=== PATIENT | female | born 1955 | race Hispanic/Latino ===

== ENCOUNTER → 2022-04-01 | Outpatient (CLI) | payer OTHER | END | disposition home or self-care (01) | LOC: RAH 08:49 | PROVIDERS: ATTEND Surgery | DX: K44.9 Diaphragmatic hernia without obstruction or gangrene (principal); K42.9 Umbilical hernia without obstruction or gangrene; R10.9 Unspecified abdominal pain; M47.815 Spondylosis without myelopathy or radiculopathy, thoracolumbar region; Z90.49 Acquired absence of other specified parts of digestive tract | CPT/HCPCS: 74150 ==

== ENCOUNTER 2022-06-22 07:26 | Day surgery (SDC) | payer OTHER ==
[2022-06-18 09:41] VITALS: BP 175/75
[2022-06-18 09:45] LABS: BASOPHILS % (AUTO) 0.6 % (0.0-5.0); EOSINOPHILS % (AUTO) 3.1 % (0.0-8.0); HEMATOCRIT 40.1 % (36-48); LYMPHOCYTES % (AUTO) 31.9 % (21.0-51.0); MEAN CORPUSCULAR HEMOGLOBIN 29.3 pg (27.0-33.0); MEAN CORPUSCULAR HGB CONC 32.4 g/dL (32.0-36.0); MEAN CORPUSCULAR VOLUME 90.3 fL (79-99); MONOCYTES % (AUTO) 5.9 % (3.0-13.0); PLATELET COUNT (AUTO) 285 K/uL (130-400); RED BLOOD CELL COUNT(AUTO) 4.44 MIL/uL (4.00-5.50); WHITE BLOOD COUNT (AUTO) 8.1 K/uL (4.8-10.8)
[2022-06-18 09:50] LABS: CREATININE 0.8 mg/dL (0.5-1.5); POTASSIUM 4.4 mmol/L (3.5-5.1)
[~2022-06-22] VITALS: Ht 165.1 cm; Wt 76.7 kg
[2022-06-22] VITALS (20 sets, daily range): BP systolic 111–138; BP diastolic 49–72
[~2022-06-22 07:26] MED LIST: CARB100T52 PO; CEFAZOLIN SODIUM 2 GM VIAL IVPB SCH; FAMO10TA39 PO; LEVO25CA4 PO; LISI20TA24 PO; MAGN400C PO; METF-444 PO; ROSU10TA28 PO; VERA40TA5 PO
[2022-06-22] MEDS ORDERED: 0.9%NACL 1000ML 1,000 ML IV ONE (07:50)
[2022-06-22] MEDS ORDERED: LIDOCAINE PF 100MG/5ML (2%) SYRINGE 5ML ONE (08:19)
[2022-06-22] MEDS ORDERED: DEXAMETHASONE SOD PHOSPHATE 4 MG/ML 1ML VIAL ONE (08:19)
[2022-06-22] MEDS ORDERED: DEXAMETHASONE SOD PHOSPHATE 10MG/ML 1ML VIAL ONE (08:19)
[2022-06-22] MEDS ORDERED: ONDANSETRON 4MG INJ ONE (08:20)
[2022-06-22] MEDS ORDERED: NEOSTIGMINE 5MG/5ML SYR IV ONE (08:20)
[2022-06-22] MEDS ORDERED: ROCURONIUM 10MG/1ML SYR 10 MG/ML ML ONE (08:20)
[2022-06-22] MEDS ORDERED: GLYCOPYRROLATE 1 MG/5 ML SYRINGE ONE (08:20)
[2022-06-22] MEDS ORDERED: PROPOFOL 10 MG/ML 20ML VIAL IV ONE (08:20)
[2022-06-22] MEDS ORDERED: MIDAZOLAM HCL 1 MG/ML 2ML VIAL ONE (08:20)
[2022-06-22] MEDS ORDERED: FENTANYL CITRATE PF 50 MCG/1 ML 2ML VIAL ONE ×3 (08:20→10:52)
[2022-06-22] MEDS ORDERED: ROPIVACAINE 0.5% 5MG/ML 30ML IJ ONE ×2 (08:23→08:25)
[2022-06-22] MEDS ORDERED: KETOROLAC 30MG VIAL (30MG/ML) ONE (10:21)
[2022-06-22] MEDS ORDERED: MEPERIDINE-PF 25 MG/ML SYG ONE (11:25)
== END 2022-06-22 12:15 | disposition home or self-care (01) ==
LOC: DAH 07:26
PROVIDERS: ATTEND Surgery
DX: K43.9 Ventral hernia without obstruction or gangrene (principal); Z20.822 Contact with and (suspected) exposure to COVID-19; I10 Essential (primary) hypertension; E11.9 Type 2 diabetes mellitus without complications; Z90.710 Acquired absence of both cervix and uterus; Z90.49 Acquired absence of other specified parts of digestive tract; Z98.890 Other specified postprocedural states; Z86.73 Personal history of transient ischemic attack (TIA), and cerebral infarction without residual deficits; Z79.84 Long term (current) use of oral hypoglycemic drugs; Z79.899 Other long term (current) drug therapy; Z82.49 Family history of ischemic heart disease and other diseases of the circulatory system; Z83.3 Family history of diabetes mellitus; K43.2 Incisional hernia without obstruction or gangrene
CPT/HCPCS: 80048; 85025; 87426; 36415; 49595; 64488; 82948 ×2; A6260; J1100 ×2; A4663; J7030 ×2; A4344; A4215 ×2; J3010 ×3; J3490; J2710; J2001; J2250; J2704; J2405; J1885; J2175; J2795 ×2; J0690; G0168; C1781; A4649; A4930; A4223; A4222; A4221; A4600